=== PATIENT | male | born 1945 | race Caucasian/White ===

== ENCOUNTER → 2019-04-05 06:47 | Outpatient (CLI) | payer MEDICARE, SELFPAY ==
--- NOTE | 2019-04-05 12:40 | STRESSREP ---
Stress Test Report Exercise myocardial perfusion stress test. 73-year-old man with a history of chest pain. Medications: Atenolol, pravastatin, Coumadin, fenofibrate. Stress protocol: Resting EKG demonstrates sinus bradycardia with a rate of 50 bpm normal intervals are noted resting blood pressures 118/70 mmHg. The patient exercised according to regular Ubaldo protocol for a total duration of 9 minutes completing stage III of the Ubaldo protocol the maximum heart rate attained was 126 bpm which was 84% of maximum predicted heart rate the maximum workload was 10.1 metabolic equivalents. Patient maintained sinus rhythm throughout the recording. At rest there were no ST or T wave changes noted suggest ischemia. At peak exercise upsloping ST changes were noted with no meet the criteria for ischemia. During recovery T wave inversions were noted in lead III. The resting blood pressure was 118/70 with a peak blood pressure 152/56. The test was terminated due to target heart rate being achieved. Myocardial perfusion protocol. 11.2 mCi of technetium 99m sestamibi was injected at rest. The patient exercised according to regular Ubaldo protocol for a total duration of 9 minutes at peak exercise 33.1 mCi of technetium 99m sestamibi was injected stress images were obtained stress and rest images were reconstructed and compared in the short axis vertical long horizontal long axis. gated images were obtained Perfusion SPECT analysis: Review of the stress images demonstrate normal uptake of tracer noted in all areas of the myocardium the resting images similar demonstrate normal uptake of tracer noted in all areas of the myocardium. No obvious ischemia is noted at this high workload. Gated SPECT analysis: The gated ejection fraction is noted to be 71%. Conclusion: Normal exercise myocardial perfusion stress test at a high workload. No obvious clinical angina noted. No arrhythmias noted. Good functional capacity. Low risk stress test.
== END ==
PROVIDERS: Family Provider Internal Medicine; PCP Internal Medicine; Referring Provider Internal Medicine; Visit Provider Internal Medicine
DX: R07.9 Chest pain, unspecified (principal)
CPT/HCPCS: 78452; 93017; A9500; A4216

== ENCOUNTER → 2020-10-01 10:55 | Outpatient (CLI) | payer MEDICARE, SELFPAY ==
[2020-10-01 09:56] VITALS: BMI 28.7
--- NOTE | 2020-10-01 11:10 | RAD_ITS ---
STUDY: X-RAY - ABDOMEN/PELVIS REASON FOR EXAM: Male, 74 years old. [address] -- SUPINE FILM TECHNIQUE: COMPARISON: None. FINDINGS: Normal visualized lung bases. The gas pattern is nonspecific in distribution. No organomegaly or soft tissue masses identified. There is a retrievable IVC filter at the level of L3-4. There are multiple osteophytes in the pelvis probably related to the dressing. Total bipolar hip prosthesis seen bilaterally. RAD/Abdomen Single View IMPRESSION: Normal x-ray examination of the abdomen and pelvis. Electronically Signed: Audrey Gilliam, at 11:31 EDT Tel , Service support ,
== END ==
PROVIDERS: PCP Internal Medicine; Referring Provider Surgery; Visit Provider Surgery
DX: Z95.828 Presence of other vascular implants and grafts (principal)
CPT/HCPCS: 74018

== ENCOUNTER 2020-10-27 05:33 | Day surgery (SDC) | payer MEDICARE, SELFPAY ==
[2020-10-01 09:56] VITALS: BMI 28.7
[2020-10-27] VITALS (7 sets, daily range): BP systolic 95–122; BP diastolic 46–72; PULSE 52–58; RESP 16–18; TEMP 36.2–36.4; O2SAT 95–100; BMI 28.2
--- NOTE | 2020-10-27 06:20 | HP.PCM_ITS ---
History and Physical Date of Admission: 10/27/20 Intake Visit Reasons: [employer], [employer] Employee Relations Representative Required: No Accompanied by: Self Is patient in pain?: No Allergies meperidine [From Demerol] Allergy (Unknown, Verified 10/01/20 09:58) unknown Medications atenolol 50 mg tablet 50 mg PO DAILY tab 10/01/20 [History Confirmed 10/01/20] fenofibrate micronized 134 mg capsule 134 mg PO DAILY cap 10/01/20 [History Confirmed 10/01/20] levothyroxine 75 mcg tablet 75 mcg PO DAILY tab 10/01/20 [History Confirmed 10/01/20] metformin 500 mg tablet,extended release 24 hr 500 mg PO DAILY tab 10/01/20 [History Confirmed 10/01/20] pravastatin 80 mg tablet 80 mg PO DAILY tab 10/01/20 [History Confirmed 10/01/20] tadalafil 20 mg tablet 20 mg PO ONCE PRN tab 10/01/20 [History Confirmed 10/01/20] warfarin 2 mg tablet tablet PO 10/01/20 [History Confirmed 10/01/20] FOR[facility] Medical History (Updated 10/01/20 @ 14:[address] Grant Lala MD) Diabetes ED (erectile dysfunction) High blood cholesterol History of blood clots Hypertension Personal history of kidney stones Thyroid disease Surgical History (Updated 10/01/20 @ 10:42 by Autumn Solorzano) History of ankle surgery History of bilateral inguinal hernia repair History of colonoscopy History of extraction of renal calculus History of left hip replacement History of left inguinal hernia repair History of lithotripsy History of right hip replacement History of right inguinal hernia repair Hx of superior vena cava filter placement Family History Daughter Breast cancer Social History Smoking Status: Never smoker second hand exposure: No alcohol intake: never substance use type: does not use caffeine: Yes what type of physical activity do you participate in: other details: Patient is a reich HPI HPI HPI: YANELIS ROMAN, is a 74 M who presents to the office today for ongoing surgical consultation for colonoscopy. The patient has a personal history of colon polyps. I have most recently assisted him November 10, 2015 with a colonoscopy. Hemorrhoids and diverticulosis noted at that time. No polyps at that setting. Follow-up recommended at 5 years. He has absolutely no current complaints. He has a good feeling of wellness. He claims that he is previous he had deep venous thrombosis. He has had problems in his arms before previously related to a PICC line. He states to me today that he has a filter in place. He presents a card for Dr. Chase Thomas had placed a celect filter 11/19/07. The patient actually cannot quite remember why he had the filter placed at that time. He has had bilateral hip replacements. But the first one of those was 2007. ROS General General: No weight change, appetite, fatigue, colon cancer, breast cancer or weakness HEENT HEENT: No difficulty swallowing, eye injury, eye surgery, swollen glands or hoarseness Endo Endocrine: Yes thyroid disease and diabetes mellitus; No thyroid cancer, Hair loss, heat intolerance or cold intolerance Skin Skin: No rash or changing moles Musc Musculoskeletal: No back problems, arthritis, rheumatoid arthritis, gout or joint pain Cardio Cardiovascular: Yes high blood pressure; No murmur, pacemaker, heart disease, atrial fibrillation, heart attack, heart stent, palpitations, shortness of breat with exertion or chest pain Psych Psychiatric: No depression, anxiety or hearing voices Resp Respiratory: No shortness of breath, No sleep apnea, No cough, No COPD, No asthma, No emphysema and No wheezing Gastro Gastrointestinal: No abdominal pain, No nausea or vomiting, No diarrhea, No constipation, No blood in stool, No acid reflux, No hemorrhoids, No ulcers, No gallbladder problem and No black,tarry stools [place] Hematologic: Yes blood thinners, No blood disorders, No bleeding, No anemia and Yes blood clots Neuro Neurologic: No weakness Exam Const General: cooperative, healthy appearing and comfortable Orientation: alert and awake [facility] Head: normal to inspection Eyes General: appearance normal, both eyes and all related structures Resp Effort & Inspection: normal respiratory effort Auscultation: clear to auscultation bilaterally Cardio Rate: regular rate Rhythm: regular rhythm GI Palpation: soft and no hepatosplenomegaly Musc Cervical Spine: normal cervical lordosis Neuro Cognition: normal cognition Extrem General: no calf tenderness bilaterally Psych Appearance: grossly normal COVID (Procedure Consent) Procedure Criteria Procedure Criteria: Yes Elective The surgeon/proceduralist and patient have discussed in detail the risk of exposure to and/or potential harm posed by the COVID-19 virus with having a surgery/procedure at this time versus the risk of delaying the surgery/procedure. It is not possible to know either the risk of delaying the surgery or procedure or chance of getting an infection with perfect accuracy, but a joint decision was made between the patient and the surgeon/proceduralist to proceed at this time with the scheduled surgery/procedure as indicated on the consent form. Assessment and Plan Assessment and Plan (1) Presence of vena cava filter: Status: Acute (2) Personal history of colonic polyps: Status: Acute Orders: Orders: Abdomen Single View Today Z95.828 Plan - Dr. Grant Lala MD: I discussed 2 separate issues with the patient today. He has a personal history of previous colon polyps. I recommend him a colonoscopy with possible biopsy or polypectomy as indicated. He has had an opportunity ask and have questions answered. We will schedule and proceed at his discretion. We will ask him to hold his Coumadin 2 days preprocedure. I have discussed with him the presence of his retrievable inferior vena cava filter. He is on lifelong Coumadin therapy. At this point he was unaware that the filter was retrievable. I recommend to him that we obtain a plain film the abdomen. This particular filter is been in for an extended period of time longer than what I would feel comfortable attempting removal. I suggested to him that our office would contact [facility] tertiary referral vascular surgery for information and advice as to whether they would like to perform a consultation with consideration for removal of the filter. He was in agreement with this as well. It is an addendum note that the abdominal film was obtained. I have reviewed that film and the filter appears to be upright and intact. We have placed a information request up to vascular surgery [facility] and are awaiting a return call. I appreciate the ongoing opportunity of assisting with the surgical care. Copy: Dr. Shilpi Lala M.D., F.A.C.S. Coding Level of Care Code Off vis,est,level 3 Diagnoses Presence of vena cava filter Z95.828 Personal history of colonic polyps Z86.010 I have re-examined the patient. There are no clinical changes since date of exam.
[2020-10-27] MEDS: Lactated Ringers 1,000 ML 100 ML IV (06:25)
[2020-10-27] MEDS: Midazolam 5 MG/ML Syringe (06:58)
[2020-10-27] MEDS: fentaNYL 100 MCG/2 ML Ampul (06:58)
--- NOTE | 2020-10-27 07:16 | OP.CCLET_ITS ---
10/27/2020 Shilpi Muhammad [address] [place] [address] Re : Colonoscopy procedure for Ramiro Easley Dear Dr. Muhammad This procedure was performed on Tuesday, October 27, 2020. My impressions and recommendations are as follows: Impressions : - Hemorrhoids found on perianal exam. - Diverticulosis in the entire examined colon. - The examination was otherwise normal. - No specimens collected. Recommendations : - Discharge patient to home. - Resume previous diet. - Continue present medications. - Repeat colonoscopy in 5 years for surveillance. My findings are described in the full procedure note, which is enclosed. If I can be of further assistance, please feel free to contact me at Doctor phone number(s): Work: . Sincerely, Grant Lala MD 10/27/2020 7:15:45 AM This report has been signed electronically.
--- NOTE | 2020-10-27 07:16 | OP.COLON_ITS ---
Patient Name: Ramiro Easley Procedure Date: 10/27/2020 6:56 AM Date of : 1945 Age: 75 Procedure: Colonoscopy Indications: High risk colon cancer surveillance: Personal history of colonic polyps Providers: Grant Lala MD Referring MD: Shilpi Muhammad Medicines: Midazolam 3 mg IV, Fentanyl 100 micrograms IV Patient Profile: Last Colonoscopy: November 2015. Complications: No immediate complications. Procedure: Pre-Anesthesia Assessment: - Prior to the procedure, a History and Physical was performed, and patient medications and allergies were reviewed. The patient's tolerance of previous anesthesia was also reviewed. The risks and benefits of the procedure and the sedation options and risks were discussed with the patient. All questions were answered, and informed consent was obtained. Prior Anticoagulants: The patient has taken no previous anticoagulant or antiplatelet agents. ASA Grade Assessment: II - A patient with mild systemic disease. After reviewing the risks and benefits, the patient was deemed in satisfactory condition to undergo the procedure. After I obtained informed consent, the scope was passed under direct vision. Throughout the procedure, the patient's blood pressure, pulse, and oxygen saturations were monitored continuously. The pediatric colonoscope was introduced through the anus and advanced to the cecum, identified by appendiceal orifice and ileocecal valve. The colonoscopy was performed without difficulty. The patient tolerated the procedure well. The quality of the bowel preparation was good. The ileocecal valve was photographed. Moderate Sedation: Moderate (conscious) sedation was personally administered by the endoscopist. The following parameters were monitored: oxygen saturation, heart rate, blood pressure, and response to care. Total physician intraservice time was 15 minutes. Scope In: 7:00:10 AM Scope Withdrawal Time 0 hours 6 minutes 57 seconds Scope Out: 7:10:19 AM Total Procedure Duration Time 0 hours 10 minutes 9 seconds Findings: Hemorrhoids were found on perianal exam. Normal prostate Scattered diverticula were found in the entire colon. The exam was otherwise without abnormality. Impression: - Hemorrhoids found on perianal exam. - Diverticulosis in the entire examined colon. - The examination was otherwise normal. - No specimens collected. Recommendation: - Discharge patient to home. - Resume previous diet. - Continue present medications. - Repeat colonoscopy in 5 years for surveillance. Procedure Code(s): --- Professional --- 26684, Colonoscopy, flexible; diagnostic, including collection of specimen(s) by brushing or washing, when performed (separate procedure) 26282, 59, Moderate sedation services provided by the same physician or other qualified health manager managed care performing the diagnostic or therapeutic service that the sedation supports, requiring the presence of an independent trained observer to assist in the monitoring of the patient's level of consciousness and physiological status; initial 15 minutes of intraservice time, patient age 5 years or older Diagnosis Code(s): --- Professional --- Z86.010, Personal history of colonic polyps K64.9, Unspecified hemorrhoids K57.30, Diverticulosis of large intestine without perforation or abscess without bleeding CPT copyright 2017 [employer]. All rights reserved. The codes documented in this report are preliminary and upon training and development assistant review may be revised to meet current compliance requirements. Grant Lala MD 10/27/2020 7:15:45 AM This report has been signed electronically. Number of Addenda: 0 Note Initiated On: 10/27/2020 6:56 AM
== END 2020-10-27 08:03 | disposition home or self-care (01) ==
LOC: EN 05:34 → AC 05:35
PROVIDERS: PCP Internal Medicine; Referring Provider Internal Medicine; Visit Provider Surgery
PROC: 0DJD8ZZ Inspection of Lower Intestinal Tract, Via Natural or Artificial Opening Endoscopic (ICD-10-PCS; CPT 45378; principal; 2020-10-27 06:55)
DX: K57.30 Diverticulosis of large intestine without perforation or abscess without bleeding (principal); K64.9 Unspecified hemorrhoids; Z86.010 Personal history of colon polyps; E11.9 Type 2 diabetes mellitus without complications; I10 Essential (primary) hypertension; E07.9 Disorder of thyroid, unspecified; Z79.01 Long term (current) use of anticoagulants; Z79.84 Long term (current) use of oral hypoglycemic drugs; Z79.899 Other long term (current) drug therapy; Z86.718 Personal history of other venous thrombosis and embolism
CPT/HCPCS: 45378; 87426; 99152; 99153; C9803; J7120

== ENCOUNTER → 2024-06-13 | Outpatient (CLI) | payer MEDICARE, OTHER, SELFPAY ==
--- NOTE | 2024-06-13 15:13 | CT_ITS ---
PROCEDURE: CT abdomen pelvis with IV contrast REASON FOR EXAM: Right lower quadrant pain TECHNIQUE: Multiple contiguous axial images of the abdomen and pelvis were obtained after the administration of intravenous contrast. Two-dimensional coronal and sagittal reformatted images were reconstructed. Low-dose imaging technique was utilized. COMPARISON: None. FINDINGS: No acute findings in the lung bases. Mild hepatic steatosis. Spleen, pancreas and adrenal glands are intact. Gallbladder is satisfactory. No significant biliary ductal dilation. Kidneys enhance symmetrically. No suspicious renal mass, calculi or hydronephrosis. Urinary bladder is grossly intact, however portions are obscured by streak artifact from bilateral hip prostheses. A couple of duodenal diverticula. No bowel obstruction, focal bowel wall thickening or significant perienteric inflammation. Appendix is not definitely visualized, however there are no significant inflammatory changes of the right lower quadrant. Terminal ileum is within normal limits. No pelvic free fluid. No free air. Mildly calcified nonaneurysmal abdominal aorta. IVC filter in place. No suspicious adenopathy. Postsurgical change from bilateral inguinal hernia repairs. No acute osseous abnormality. Mild/moderate multilevel degenerative changes of the spine. CT/Abdomen/Pelvis WITH Contrast IMPRESSION: No acute process. One or more dose reduction techniques were used (e.g., Automated exposure contr ol, adjustment of the mA and/or kV according to patient size, use of iterative reconstruction technique). Reading Location: [facility]
[2024-06-13 15:21] LABS: Absolute Lymphocyte Count 1.55 X10^3/uL (0.83-4.51); Basophil# 0.03 X10^3/uL; Basophil% 0.6 % (0-1); Eosinophil# 0.28 X10^3/uL; Eosinophils% 5.3 % (0-5); Hematocrit 50.4 % (40-54); Hemoglobin 17.2 g/dL (13.0-16.5); Lymphocyte # 1.55 X10^3/ul (0.83-4.51); Lymphocyte % 29.2 % (19-41); Mean Corp Hgb Conc 34.1 g/dL (32-36); Mean Corpuscular Hgb 31.5 pg (27.0-32.0); Mean Corpuscular Volume 92.3 fL (80-94); Mean Platelet Vol. 9.7 fl (6.2-12.0); Monocyte# 0.42 X10^3/uL; Monocyte% 7.9 % (0-10); NRBC Flagged by Analyzer 0 % (0-5); Neutrophil # 2.98 X10^3/uL (2.7-7.7); Neutrophil % 56.2 % (47-70); Platelet Count 222 K/mm3 (150-450); RBC Distribution Width CV 14.1 % (11.6-14.6); RBC Distribution Width SD 47.6 fl (35.1-43.9); Red Blood Count 5.46 M/mm3 (4.6-6.2); White Blood Count 5.3 K/mm3 (4.4-11.0)
[2024-06-13 15:42] LABS: Erythrocyte Sedimentation Rate 1 mm/hr (0-20)
[2024-06-13 17:10] LABS: ALB/GLOB Ratio 1.5 RATIO (0.9-2.4); AST(SGOT) 208 U/L (<=37); Alanine Aminotransfer ALT/SGPT 192 U/L (<=46); Albumin, Serum 4.4 g/dL (3.4-4.8); Alkaline Phosphatase 68 U/L (40-129); Anion Gap 10 (5-15); BUN 19 mg/dL (4-19); BUN/Creat Ratio 15.5 RATIO (10-20); Calcium,Total 9.5 mg/dL (7.6-11.0); Chloride 106 mmol/L (98-108); Creatinine, Serum 1.25 mg/dL (0.70-1.20); EST Glomerular Filtration Rate 60 (>60); Globulin 2.9 g/dL (2.2-4.2); Glucose 103 mg/dL (70-99); Potassium 4.9 mmol/L (3.3-5.1); Protein, Total 7.4 g/dL (5.9-8.4); Sodium Level 138 mmol/L (133-145); Total Bilirubin 0.45 mg/dL (0.00-1.30)
[2024-06-13 20:39] LABS: CRP 5.31 mg/L (0.0-3.0)
== END | disposition home or self-care (01) ==
PROVIDERS: PCP Internal Medicine; Referring Provider Internal Medicine; Visit Provider Internal Medicine
DX: R10.31 Right lower quadrant pain (principal)
CPT/HCPCS: 36415; 74177; 80053; 85025; 85652; 86140; 87086; Q9967